=== PATIENT | female | born 1980 | race African-American/Black ===

== ENCOUNTER 2016-05-08 10:53 | Day surgery (SDC) | payer OTHER ==
[2016-05-08] MEDS ORDERED: PROMETHAZINE HCL INJ 25 MG/1 ML VIAL ONE (11:33)
[2016-05-08] MEDS ORDERED: ONDANSETRON HCL INJ/PF 4 MG/2 ML SDV ONE (11:33)
[2016-05-08] MEDS ORDERED: NALOXONE HCL INJ/PF 0.4 MG/1 ML SDV ONE (11:33)
[2016-05-08] MEDS ORDERED: DIPHENHYDRAMINE HCL 50 MG/ML VIAL ONE (11:33)
[2016-05-08] MEDS ORDERED: GLUCAGON,HUMAN RECOMB 1 MG INJ ONE (11:34)
[2016-05-08] MEDS ORDERED: EPINEPHRINE INJ 1 MG/10 ML DISP.SYRIN ONE (11:34)
[2016-05-08] MEDS ORDERED: FLUMAZENIL INJ 0.5 MG/5 ML VIAL IV ONE (11:34)
[2016-05-08] MEDS: MIDAZOLAM 2 MG/2 ML INJ ONE ×2 (11:50→11:54)
[2016-05-08] MEDS: FENTANYL CITRATE INJ/PF 100 MCG/2 ML AMPUL ONE ×2 (11:52→11:56)
--- NOTE | 2016-05-08 12:10 | Operative Report ---
Operative Report DATE OF SURGERY: 05/08/16 Operative Report: The risks benefits and alternatives of the procedure explained to the patient in detail and informed consent is obtained that GIF Olympus video scope was inserted into the patient's mouth and hypopharynx the esophagus is identified intubated and insufflated the scope was then advanced through the esophagus stomach and duodenum retroflexion maneuver is done the esophagus stomach and first and second portions of the duodenum examined PREOPERATIVE DIAGNOSIS: Dysphagia. Previous history of a Schatzki's ring. Known eosinophilic esophagitis. 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 Esophageal rings and furrows that are still consistent with eosinophilic esophagitis. Gastritis status post biopsy. Suspect that patient had a food bolus and that stricture secondary to healing after ulcer formation. OPERATION: EGD with dilatation. EGD with biopsy SURGEON: DOMENIC LUIS ANESTHESIA: Moderate Sedation - 4 mg of Versed, 100 g of fentanyl TISSUE REMOVED OR ALTERED: Gastric specimen obtained rule out Helicobacter pylori COMPLICATIONS: None. ESTIMATED BLOOD LOSS: none. INTRAOPERATIVE FINDINGS: As described above. No gastric ulcers. First and second portions of the duodenum are normal. PROCEDURE: Patient tolerated procedure well. No immediate postprocedure complications are noted. Patient is discharged in good condition. Discharge date 05/08/2016 Discharge diet: Regular. Discharge activity: Regular. Need to resume her PPI therapy along with fluticasone Follow-up in 2-3 weeks We'll await on biopsies Patient to call the office or proceed to the emergency room should there be any further problems or questions
[2016-05-08 13:11] VITALS: BP 125/69
== END 2016-05-08 13:10 | disposition home or self-care (01) ==
LOC: END 10:53
PROVIDERS: ATTEND Internal Medicine Gastroenterology
PROC: 0DB68ZX Excision of Stomach, Via Natural or Artificial Opening Endoscopic, Diagnostic (ICD-10-PCS; principal; 2016-05-08 11:30)
DX: K22.2 Esophageal obstruction (principal); K29.50 Unspecified chronic gastritis without bleeding; R07.89 Other chest pain; Z79.899 Other long term (current) drug therapy; Z88.0 Allergy status to penicillin
CPT/HCPCS: 43239; 88305 ×2; J2250; J0171; J3010; J1200; J1610; J2310; J2405; J2550; J3490